=== PATIENT | female | born 1960 | race Caucasian/White ===

== ENCOUNTER 2017-10-09 19:53 | Inpatient (IN) | payer MEDICARE, MEDICAID ==
[~2017-10-09] VITALS: Ht 152.4 cm; Wt 68.0 kg
[2017-10-09] MEDS ORDERED: CLON0.5T4 PO (22:38)
[2017-10-09] MEDS ORDERED: TRIH2TAB3 PO (22:38)
[2017-10-09] MEDS ORDERED: AMLO5TAB4 PO (22:38)
[2017-10-09] MEDS ORDERED: PARO37.510 PO (22:38)
[2017-10-09] MEDS ORDERED: MEMA5TAB PO (22:38)
[2017-10-09] MEDS ORDERED: LITH300T3 PO (22:38)
[2017-10-09] MEDS ORDERED: OLAN5TAB3 PO (22:38)
[2017-10-09] MEDS ORDERED: DIVA500T7 PO (22:38)
[2017-10-09 23:46] LABS: BASOPHILS # (AUTO) 0.1 K/uL (0.0-8.0); BASOPHILS % (AUTO) 1.3 % (0.0-2.0); EOSINOPHILS # (AUTO) 0.2 K/uL (0.0-0.7); EOSINOPHILS % (AUTO) 1.5 % (0.0-7.0); HEMATOCRIT 43.6 % (31.2-41.9); HEMOGLOBIN 14.5 g/dL (10.9-14.3); LYMPHOCYTES # (AUTO) 2.8 K/uL (20.0-40.0); LYMPHOCYTES % (AUTO) 24.5 % (20.5-51.5); MEAN CORPUSCULAR HEMOGLOBIN 29.4 uug (24.7-32.8); MEAN CORPUSCULAR HGB CONC 33 g/dL (32.3-35.6); MEAN CORPUSCULAR VOLUME 88.1 fL (75.5-95.3); MONOCYTES # (AUTO) 0.7 K/uL (2.0-10.0); MONOCYTES % (AUTO) 6.1 % (0.0-11.0); NEUTROPHILS # (AUTO) 7.5 K/uL (1.8-8.9); NEUTROPHILS % (AUTO) 66.6 % (38.5-71.5); PLATELET COUNT (AUTO) 262 K/uL (179-408); RED BLOOD CELL COUNT(AUTO) 4.95 MIL/uL (3.63-4.92); WHITE BLOOD COUNT (AUTO) 11.3 K/uL (3.8-11.8)
[2017-10-10] LABS: CREATININE 0.8 mg/dL (0.6-1.3)
[2017-10-10 00:12] LABS: BILIRUBIN,DIRECT 0.1 mg/dL (0.0-0.2); BILIRUBIN,TOTAL 0.4 mg/dL (0.2-1.0); TOTAL PROTEIN, SERUM 7.1 g/dL (6.4-8.2)
[2017-10-10] MEDS ORDERED: MORPHINE SULFATE 2 MG/1 ML DISP.SYRIN IV PRN (00:45)
[2017-10-10] MEDS ORDERED: Z GUARD REMEDY PASTE 57 GM TUBE TOP PRN (00:45)
[2017-10-10] MEDS ORDERED: ONDANSETRON 4 MG/2 ML VIAL IV PRN (00:45)
[2017-10-10] MEDS ORDERED: MAGNESIUM HYDROXIDE 30 ML LIQUID UDC PO PRN (00:45)
[2017-10-10] MEDS ORDERED: HYDROCODONE/APAP 5-325MG TABLET PO PRN (00:45)
[2017-10-10 01:00] VITALS: BP 109/71
--- NOTE | 2017-10-10 01:05 | NUR ---
ADMITTED PATIENT IN TELE UNIT UNDER THE CARE OF DR TORRES, INVENTORY LIST DONE.
--- NOTE | 2017-10-10 01:05 | NUR ---
Pt. admitted to TELE, under care of Raul Fofana (TALHA). Belongs List completed
[2017-10-10 04:00] VITALS: BP 149/79
--- NOTE | 2017-10-10 05:59 | NUR ---
PATIENT AWAKE, VERBALLY RESPONSIVE NO SOB NO CHEST PAIN, RHYTHM SINUS RHYTHM 60BPM, VOIDING WELL, NO COMPLAIN OF CHEST PAIN, CONT TO MONITOR.
--- NOTE | 2017-10-10 08:00 | NUR ---
RECEIVED PATIENT AWAKE, ALERT AND ORIENTED X4, NO COMPLAINTS OF SOB. PATIENT CLAIMED CHEST PAINS ARE MINIMAL AND IMPROVED. SINUS RHYTHM. CALL LIGHT WITHIN REACH. WILL CONTINUE TO MONITOR.
[2017-10-10] MEDS: TRIHEXYPHENIDYL HCL 2 MG TABLET PO SCH ×3 (09:00→16:09)
[2017-10-10] MEDS: OLANZAPINE 5 MG TABLET PO SCH ×3 (09:00→16:08)
[2017-10-10] MEDS ORDERED: PAROXETINE HCL 37.5 MG PO SCH (09:00)
[2017-10-10] MEDS: Z GUARD REMEDY PASTE 57 GM TUBE TOP SCH ×2 (09:01→21:00)
[2017-10-10] MEDS: DIVALPROEX 500 MG TABLET.DR PO SCH ×2 (09:01→16:09)
[2017-10-10] MEDS: AMLODIPINE 5 MG TABLET PO SCH (09:01)
[2017-10-10] MEDS: LITHIUM CARBONATE 300 MG TABLET PO SCH ×2 (09:01→16:09)
[2017-10-10] MEDS: PAROXETINE HCL 10 MG TABLET PO SCH (09:35)
--- NOTE | 2017-10-10 09:45 | NUR ---
PATIENT REFUSED ARTANE AND CLAIMS SHE DOESN'T WANT THE SIDE EFFECTS OF IT. REFUSED TO TAKE PAXIL AND SAID SHE RATHER HAVE KLONOPIN INSTEAD. DISCUSSED RISKS AND BENEFITS WITH PATIENT. BUT STILL REFUSES TO TAKE PAXIL AND ARTANE.
[2017-10-10] MEDS: CLONAZEPAM 0.5 MG TABLET PO PRN (09:50)
--- NOTE | 2017-10-10 09:52 | NUR ---
PATIENT IS ANXIOUS AND WANTS TO GO OUT TO SMOKE. KLONOPIN PRN GIVEN
--- NOTE | 2017-10-10 11:26 | NUR ---
SEEN AND EXAMINED BY CLARE Mendoza/TALHA
[2017-10-10 11:29] LABS: BASOPHILS # (AUTO) 0.1 K/uL (0.0-8.0); EOSINOPHILS # (AUTO) 0.2 K/uL (0.0-0.7); HEMATOCRIT 42.9 % (31.2-41.9); HEMOGLOBIN 14.6 g/dL (10.9-14.3); LYMPHOCYTES # (AUTO) 1.7 K/uL (20.0-40.0); LYMPHOCYTES % (AUTO) 19.6 % (20.5-51.5); MEAN CORPUSCULAR HEMOGLOBIN 29.9 uug (24.7-32.8); MEAN CORPUSCULAR HGB CONC 34 g/dL (32.3-35.6); MEAN CORPUSCULAR VOLUME 87.9 fL (75.5-95.3); MONOCYTES # (AUTO) 0.7 K/uL (2.0-10.0); MONOCYTES % (AUTO) 7.7 % (0.0-11.0); NEUTROPHILS % (AUTO) 69.7 % (38.5-71.5); PLATELET COUNT (AUTO) 214 K/uL (179-408); RED BLOOD CELL COUNT(AUTO) 4.88 MIL/uL (3.63-4.92); WHITE BLOOD COUNT (AUTO) 8.6 K/uL (3.8-11.8)
[2017-10-10] MEDS: ASPIRIN EC 81 MG TABLET.DR PO SCH (11:29)
[2017-10-10 12:05] LABS: BILIRUBIN,TOTAL 0.5 mg/dL (0.2-1.0); CREATININE 0.7 mg/dL (0.6-1.3); PHOSPHOROUS 4.3 mg/dL (2.5-4.9); POTASSIUM 3.9 mmol/L (3.5-5.1); TOTAL PROTEIN, SERUM 7.1 g/dL (6.4-8.2)
[2017-10-10 12:08] VITALS: BP 128/80
[2017-10-10 12:16] LABS: THYROID STIMULATING HORMONE 2.967 mIU/mL (0.358-3.740)
[2017-10-10 12:28] LABS: *BILIRUBIN,URIN NEGATIVE (NEGATIVE); *BLOOD, URINE Trace-intact (NEGATIVE); *CLARITY,URINE CLEAR (CLEAR); *COLOR,URINE STRAW (YELLOW); *KETONES,URINE NEGATIVE (NEGATIVE); *PROTEIN,URINE NEGATIVE (NEGATIVE); *UROBILINOGEN,URINE 0.2 E.U./dl (NORMAL); LEUKOCYTE ESTERASE ,URINE 1+ (NEGATIVE); NITRITE, URINE NEGATIVE (NEGATIVE); UGLUCOSE NEGATIVE (NEGATIVE)
[2017-10-10 12:54] LABS: BACTERIA,URINE MODERATE /HPF (NONE SEEN)
[2017-10-10 12:55] LABS: SQUAMOUS EPITHELIAL CELL,UR MANY /HPF (NONE SEEN)
[2017-10-10] MEDS ORDERED: ALBUTEROL SULFATE 2.5 MG/3 ML NEBU NEB PRN (13:15)
[2017-10-10] MEDS ORDERED: LEVOFLOXACIN 500 MG/D5W 500 MG in PREMIXED 1 EACH IV SCH (13:15)
[2017-10-10] MEDS ORDERED: IPRATROPIUM BROMIDE 0.5 MG/2.5 ML NEBU NEB PRN (13:15)
[2017-10-10] MEDS: CEFTRIAXONE 1 G in IV DEXTROSE 5% 50 ML IV SCH (14:06)
[2017-10-10] MEDS: NICOTINE 21 MG/24HR PATCH TD SCH (14:23)
[2017-10-10 16:06] VITALS: BP 141/79
--- NOTE | 2017-10-10 18:00 | NUR ---
Patient resting in BED, asleep. Non-labored breathing. NO SOB or chest pains
[2017-10-10 20:00] VITALS: BP 122/70
[2017-10-10] MEDS: IPRATROPIUM BROMIDE 0.5 MG/2.5 ML NEBU NEB SCH (20:58)
[2017-10-10] MEDS: ALBUTEROL SULFATE 2.5 MG/3 ML NEBU NEB SCH (20:58)
[2017-10-10] MEDS: DOCUSATE SODIUM 100 MG CAPSULE PO SCH (21:18)
[2017-10-10] MEDS: MEMANTINE HCL 5 MG TABLET PO SCH (21:18)
[2017-10-11 00:12] VITALS: BP 120/68
--- NOTE | 2017-10-11 00:39 | NUR ---
Pt alert, awake, oriented, cooperative at beginning of my shift @ 1900, requested "my regular [place] and Zypreza". Denies pain, shortness of breath or nausea. Seems calm. I checked eMar, explained to pt that she has received her scheduled doses of same and if needed, I can give Clonopin "I don't need it right now". Advised pt to let me know if needs and I will administer. Respirations even, unlabored, MAEW. No acute distress noted. Pt has been quietly asleep since about 2200, awakens to voice and easily returns to sleep. Bed in low position, call light with pt, monitoring for safety/physiologic changes.
[2017-10-11 04:00] VITALS: BP 132/75
[2017-10-11] MEDS: PANTOPRAZOLE SODIUM 40 MG TABLET.DR PO SCH (06:28)
[2017-10-11 07:03] LABS: BASOPHILS # (AUTO) 0.2 K/uL (0.0-8.0); EOSINOPHILS # (AUTO) 0.3 K/uL (0.0-0.7); EOSINOPHILS % (AUTO) 4.3 % (0.0-7.0); HEMATOCRIT 44.2 % (31.2-41.9); LYMPHOCYTES % (AUTO) 25.2 % (20.5-51.5); MEAN CORPUSCULAR HGB CONC 34 g/dL (32.3-35.6); MEAN CORPUSCULAR VOLUME 88.6 fL (75.5-95.3); MONOCYTES # (AUTO) 0.6 K/uL (2.0-10.0); MONOCYTES % (AUTO) 7.5 % (0.0-11.0); NEUTROPHILS # (AUTO) 4.8 K/uL (1.8-8.9); PLATELET COUNT (AUTO) 226 K/uL (179-408); RED BLOOD CELL COUNT(AUTO) 4.99 MIL/uL (3.63-4.92); WHITE BLOOD COUNT (AUTO) 7.9 K/uL (3.8-11.8)
[2017-10-11 07:16] LABS: CREATININE 0.8 mg/dL (0.6-1.3); MAGNESIUM 2.3 mg/dL (1.8-2.4); PHOSPHOROUS 5.1 mg/dL (2.5-4.9); POTASSIUM 4.6 mmol/L (3.5-5.1)
[2017-10-11] MEDS: ALBUTEROL SULFATE 2.5 MG/3 ML NEBU NEB SCH ×4 (07:28→19:26)
[2017-10-11] MEDS: IPRATROPIUM BROMIDE 0.5 MG/2.5 ML NEBU NEB SCH ×4 (07:28→19:26)
[2017-10-11 07:29] LABS: THYROID STIMULATING HORMONE 1.328 mIU/mL (0.358-3.740)
[2017-10-11] MEDS: TRIHEXYPHENIDYL HCL 2 MG TABLET PO SCH ×3 (09:00→17:00)
[2017-10-11] MEDS: OLANZAPINE 5 MG TABLET PO SCH ×3 (10:47→17:17)
[2017-10-11] MEDS: NICOTINE 21 MG/24HR PATCH TD SCH (10:47)
[2017-10-11] MEDS: DOCUSATE SODIUM 100 MG CAPSULE PO SCH ×2 (10:47→20:56)
[2017-10-11] MEDS: ASPIRIN EC 81 MG TABLET.DR PO SCH (10:47)
[2017-10-11] MEDS: LITHIUM CARBONATE 300 MG TABLET PO SCH ×2 (10:48→17:16)
[2017-10-11] MEDS: PAROXETINE HCL 10 MG TABLET PO SCH (10:48)
[2017-10-11] MEDS: DIVALPROEX 500 MG TABLET.DR PO SCH ×2 (10:48→17:16)
[2017-10-11] MEDS: AMLODIPINE 5 MG TABLET PO SCH (10:58)
[2017-10-11] MEDS: Z GUARD REMEDY PASTE 57 GM TUBE TOP SCH ×2 (11:01→21:02)
[2017-10-11 12:02] VITALS: BP 103/82
[2017-10-11] MEDS: CEFTRIAXONE 1 G in IV DEXTROSE 5% 50 ML IV SCH (14:17)
[2017-10-11 15:45] VITALS: BP 111/71
[2017-10-11] MEDS: ACETAMINOPHEN 325 MG TABLET PO PRN ×2 (16:23→20:56)
--- NOTE | 2017-10-11 18:56 | NUR ---
Pt has remained stable throughout this shift, v/s WNL, no c.o pain or SOB. Call light within reach. IV medication tolerated well, until Pt accidentally removed IV access. 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
[2017-10-11 19:00] VITALS: BP 118/67
[2017-10-11] MEDS: MEMANTINE HCL 5 MG TABLET PO SCH (20:56)
[2017-10-11] MEDS: ATORVASTATIN 20 MG TABLET PO SCH (20:56)
[2017-10-11] MEDS: CLONAZEPAM 0.5 MG TABLET PO PRN (22:40)
--- NOTE | 2017-10-12 05:39 | NUR ---
PT SLEPT WELL THROUGH THE NIGHT AND WAS EASILY AWOKEN, PT COMPLAINED OF LEG PAIN, TYLENOL WAS GIVEN AND WAS EFFECTIVE. PT DENIED HAVING ANY DIFFICULTY BREATHING. PT WAS RESTLESS AT START OF SHIFT BUT WAS EASILY REDIRECTED. ALL NEEDS MET, SAFETY MEASURES ARE IN PLACE, CALL LIGHT WITHIN REACH, BED ALARM IS ON.
[2017-10-12] MEDS: PANTOPRAZOLE SODIUM 40 MG TABLET.DR PO SCH (06:22)
[2017-10-12] MEDS: ALBUTEROL SULFATE 2.5 MG/3 ML NEBU NEB SCH ×3 (07:35→19:28)
[2017-10-12] MEDS: IPRATROPIUM BROMIDE 0.5 MG/2.5 ML NEBU NEB SCH ×3 (07:35→19:28)
[2017-10-12 08:16] LABS: BASOPHILS # (AUTO) 0.1 K/uL (0.0-8.0); BASOPHILS % (AUTO) 1.3 % (0.0-2.0); EOSINOPHILS # (AUTO) 0.3 K/uL (0.0-0.7); EOSINOPHILS % (AUTO) 4.2 % (0.0-7.0); HEMATOCRIT 43.9 % (31.2-41.9); HEMOGLOBIN 14.9 g/dL (10.9-14.3); LYMPHOCYTES # (AUTO) 1.5 K/uL (20.0-40.0); LYMPHOCYTES % (AUTO) 21.9 % (20.5-51.5); MEAN CORPUSCULAR HEMOGLOBIN 29.9 uug (24.7-32.8); MEAN CORPUSCULAR HGB CONC 34 g/dL (32.3-35.6); MEAN CORPUSCULAR VOLUME 87.9 fL (75.5-95.3); MONOCYTES # (AUTO) 0.5 K/uL (2.0-10.0); MONOCYTES % (AUTO) 7.4 % (0.0-11.0); NEUTROPHILS # (AUTO) 4.6 K/uL (1.8-8.9); NEUTROPHILS % (AUTO) 65.2 % (38.5-71.5); PLATELET COUNT (AUTO) 216 K/uL (179-408); RED BLOOD CELL COUNT(AUTO) 4.99 MIL/uL (3.63-4.92); WHITE BLOOD COUNT (AUTO) 7.1 K/uL (3.8-11.8)
[2017-10-12] MEDS: Z GUARD REMEDY PASTE 57 GM TUBE TOP SCH ×2 (09:00→20:20)
[2017-10-12] MEDS: TRIHEXYPHENIDYL HCL 2 MG TABLET PO SCH ×3 (09:00→17:00)
[2017-10-12 09:08] LABS: BILIRUBIN,TOTAL 0.6 mg/dL (0.2-1.0); CREATININE 0.8 mg/dL (0.6-1.3); MAGNESIUM 2.2 mg/dL (1.8-2.4); PHOSPHOROUS 5.5 mg/dL (2.5-4.9); TOTAL PROTEIN, SERUM 6.8 g/dL (6.4-8.2)
[2017-10-12] MEDS: ASPIRIN EC 81 MG TABLET.DR PO SCH (09:08)
[2017-10-12] MEDS: DIVALPROEX 500 MG TABLET.DR PO SCH ×2 (09:09→16:55)
[2017-10-12] MEDS: PAROXETINE HCL 10 MG TABLET PO SCH (09:09)
[2017-10-12] MEDS: OLANZAPINE 5 MG TABLET PO SCH ×3 (09:09→17:38)
[2017-10-12] MEDS: LITHIUM CARBONATE 300 MG TABLET PO SCH ×2 (09:10→16:56)
[2017-10-12] MEDS: DOCUSATE SODIUM 100 MG CAPSULE PO SCH ×2 (09:10→20:20)
[2017-10-12] MEDS: AMLODIPINE 5 MG TABLET PO SCH (09:11)
[2017-10-12] MEDS: NICOTINE 21 MG/24HR PATCH TD SCH (09:11)
[2017-10-12 11:50] VITALS: BP 125/73
[2017-10-12] MEDS: CEFTRIAXONE 1 G in IV DEXTROSE 5% 50 ML IV SCH (13:54)
[2017-10-12 16:52] VITALS: BP 153/81
[2017-10-12 20:00] VITALS: BP 110/65
--- NOTE | 2017-10-12 20:00 | NUR ---
NSG: RECEIVED PATIENT ALERT AWAKE AND VERBALLY RESPONSIVE, NO SOB NO CHEST PAIN, NO COMPLAIN OF CHEST PAIN, CONTINUE MONITORING FOR PAIN AND SAFETY.
[2017-10-12] MEDS: ATORVASTATIN 20 MG TABLET PO SCH (20:20)
[2017-10-12] MEDS: MEMANTINE HCL 5 MG TABLET PO SCH (20:20)
[2017-10-12] MEDS: CLONAZEPAM 0.5 MG TABLET PO PRN (21:49)
--- NOTE | 2017-10-12 21:49 | NUR ---
NSG: KLONOPIN 0.5 MG PO GIVEN FOR INSOMNIA PER PATIENT REQUESTED.
[2017-10-12] MEDS: CEFAZOLIN 1 G in PREMIXED 1 EACH IV SCH (22:15)
--- NOTE | 2017-10-12 22:50 | NUR ---
NSG: PATIENT SLEEPING EYE CLOSE. PRN FOR INSOMNIA EFFECTIVE.
[2017-10-13 04:00] VITALS: BP 141/73
--- NOTE | 2017-10-13 05:31 | NUR ---
NSG: Pt has remain stable throughout this shift, sleeping in bed comfortably. V/S WNL, no c/o pain or SOB at this time. Call light within reach. IV medication tolerated well. ivf running well. continue to monitor for pain and safety. Addendum: 10/13/17 at 0536 by ANGEL CABRAL LVN no ivf running any more was d/c yesterday day shift.
[2017-10-13 05:33] VITALS: BP 141/73
[2017-10-13] MEDS: CEFAZOLIN 1 G in PREMIXED 1 EACH IV SCH (05:55)
[2017-10-13] MEDS: PANTOPRAZOLE SODIUM 40 MG TABLET.DR PO SCH (06:20)
[2017-10-13] MEDS: ALBUTEROL SULFATE 2.5 MG/3 ML NEBU NEB SCH (07:54)
[2017-10-13] MEDS: IPRATROPIUM BROMIDE 0.5 MG/2.5 ML NEBU NEB SCH (07:54)
--- NOTE | 2017-10-13 08:30 | NUR ---
Received patient on bed asleep, no acute distress noted. A and O x 3. Able to ambulate. and go to the restroom independently. No complaints of pain at this time. IV access on Right forearm intact and patent. All comfort measures provided. Call light within reach and answered in a timely manner. Will continue to monitor closely
[2017-10-13] MEDS: TRIHEXYPHENIDYL HCL 2 MG TABLET PO SCH ×3 (08:39→13:00)
[2017-10-13] MEDS: OLANZAPINE 5 MG TABLET PO SCH ×2 (08:39→13:19)
[2017-10-13] MEDS: ASPIRIN EC 81 MG TABLET.DR PO SCH (08:39)
[2017-10-13] MEDS: LITHIUM CARBONATE 300 MG TABLET PO SCH (08:39)
[2017-10-13] MEDS: AMLODIPINE 5 MG TABLET PO SCH (08:40)
[2017-10-13] MEDS: DOCUSATE SODIUM 100 MG CAPSULE PO SCH (08:40)
[2017-10-13] MEDS: NICOTINE 21 MG/24HR PATCH TD SCH (08:40)
[2017-10-13] MEDS: DIVALPROEX 500 MG TABLET.DR PO SCH (08:46)
[2017-10-13] MEDS: Z GUARD REMEDY PASTE 57 GM TUBE TOP SCH (08:47)
[2017-10-13 09:04] LABS: BASOPHILS # (AUTO) 0.1 K/uL (0.0-8.0); BASOPHILS % (AUTO) 1.4 % (0.0-2.0); EOSINOPHILS # (AUTO) 0.3 K/uL (0.0-0.7); EOSINOPHILS % (AUTO) 3.7 % (0.0-7.0); HEMATOCRIT 43.1 % (31.2-41.9); HEMOGLOBIN 14.6 g/dL (10.9-14.3); LYMPHOCYTES # (AUTO) 1.7 K/uL (20.0-40.0); LYMPHOCYTES % (AUTO) 22.7 % (20.5-51.5); MEAN CORPUSCULAR HEMOGLOBIN 29.7 uug (24.7-32.8); MEAN CORPUSCULAR HGB CONC 34 g/dL (32.3-35.6); MEAN CORPUSCULAR VOLUME 88.1 fL (75.5-95.3); MONOCYTES # (AUTO) 0.5 K/uL (2.0-10.0); MONOCYTES % (AUTO) 7.3 % (0.0-11.0); NEUTROPHILS # (AUTO) 4.8 K/uL (1.8-8.9); NEUTROPHILS % (AUTO) 64.9 % (38.5-71.5); PLATELET COUNT (AUTO) 221 K/uL (179-408); WHITE BLOOD COUNT (AUTO) 7.5 K/uL (3.8-11.8)
[2017-10-13] MEDS: PAROXETINE HCL 10 MG TABLET PO SCH (09:21)
[2017-10-13 09:38] LABS: BILIRUBIN,TOTAL 0.4 mg/dL (0.2-1.0); CREATININE 0.8 mg/dL (0.6-1.3); MAGNESIUM 2.2 mg/dL (1.8-2.4); PHOSPHOROUS 4.4 mg/dL (2.5-4.9); POTASSIUM 4.6 mmol/L (3.5-5.1); TOTAL PROTEIN, SERUM 6.8 g/dL (6.4-8.2)
[2017-10-13 11:48] VITALS: BP 136/76
[2017-10-13] MEDS ORDERED: PANT40TA2 PO (11:50)
[2017-10-13] MEDS ORDERED: MAGN400O6 PO (11:50)
[2017-10-13] MEDS ORDERED: CEPH500C2 PO (11:50)
[2017-10-13] MEDS ORDERED: ALBU2.5V7 NEB ×2 (11:50)
[2017-10-13] MEDS ORDERED: CLON0.5T4 PO (11:50)
[2017-10-13] MEDS ORDERED: NICO-672 TD (11:50)
[2017-10-13] MEDS ORDERED: TRIH2TAB4 PO (11:50)
[2017-10-13] MEDS ORDERED: PARO10TA4 PO (11:50)
[2017-10-13] MEDS ORDERED: IPRA0.2S6 NEB ×2 (11:50)
[2017-10-13] MEDS ORDERED: LITH300T3 PO (11:50)
[2017-10-13] MEDS ORDERED: HYDR-3326 PO (11:50)
[2017-10-13] MEDS ORDERED: ASPI-618 PO (11:50)
[2017-10-13] MEDS ORDERED: OLAN5TAB3 PO (11:50)
[2017-10-13] MEDS ORDERED: MEMA5TAB PO (11:50)
[2017-10-13] MEDS ORDERED: DOCU100C36 PO (11:50)
[2017-10-13] MEDS ORDERED: AMLO5TAB2 PO (11:50)
[2017-10-13] MEDS ORDERED: ATOR20TA PO (11:50)
[2017-10-13] MEDS ORDERED: ACET325T53 PO (11:50)
[2017-10-13] MEDS ORDERED: DIVA500T2 PO (11:50)
[2017-10-13] MEDS ORDERED: LACT1CAP59 PO (11:51)
[2017-10-13] MEDS ORDERED: CEPHALEXIN MONOHYDRATE 500 MG CAPSULE PO SCH (14:00)
--- NOTE | 2017-10-13 15:44 | NUR ---
Patient discharged to [facility] in stable condition, accompanied by EMT. Report given to RN at [facility]. IV access removed and well tolerated. Vital signs are stable.
== END 2017-10-13 15:45 | DRG 191 ==
LOC: ER 19:54 → TELE 10-10 00:20 → MED 10-11 17:44
PROVIDERS: ADMIT Nurse Practitioner Acute Care; ATTEND Internal Medicine
DX: J44.1 Chronic obstructive pulmonary disease with (acute) exacerbation (principal); N39.0 Urinary tract infection, site not specified; G20 Parkinson's disease; Z99.81 Dependence on supplemental oxygen; D75.1 Secondary polycythemia; F25.0 Schizoaffective disorder, bipolar type; E83.39 Other disorders of phosphorus metabolism; E11.65 Type 2 diabetes mellitus with hyperglycemia; I25.119 Atherosclerotic heart disease of native coronary artery with unspecified angina pectoris; F02.80 Dementia in other diseases classified elsewhere, unspecified severity, without behavioral disturbance, psychotic disturbance, mood disturbance, and anxiety; F17.210 Nicotine dependence, cigarettes, uncomplicated; Z87.01 Personal history of pneumonia (recurrent); Z83.3 Family history of diabetes mellitus; Z82.5 Family history of asthma and other chronic lower respiratory diseases; Z82.49 Family history of ischemic heart disease and other diseases of the circulatory system; Z88.2 Allergy status to sulfonamides; Z79.899 Other long term (current) drug therapy; Z88.0 Allergy status to penicillin; I10 Essential (primary) hypertension; B96.20 Unspecified Escherichia coli [E. coli] as the cause of diseases classified elsewhere; E78.5 Hyperlipidemia, unspecified; E66.9 Obesity, unspecified; Z68.29 Body mass index [BMI] 29.0-29.9, adult; K59.09 Other constipation; R06.02 Shortness of breath
CPT/HCPCS: 36415; 70030-TC; 71010; 83605; 83735; 84100; 84443; 85025; 85730; 87040; 87077; 87086; 93005; 93307; 94640; A4663; J0690; J0696; J3590; J7040; J7060